=== PATIENT | male | born 1985 | race African-American/Black ===

== ENCOUNTER 2021-12-05 19:54 | Emergency (ER) | payer SELFPAY ==
[2021-12-05 21:53] LABS: Absolute Lymphocytes (CBC) 2.1 K/uL (0.7-4.9); Hematocrit 40.6 % (39.6-49.0); Lymphocytes % 29.4 % (15.3-44.8); MCV 86.3 fL (80-100); MPV 7.3 fL (7.6-11.3)
--- NOTE | 2021-12-05 22:02 | RAD REPORT ---
EXAM DESCRIPTION: RAD - Chest Single View - 12/05/2021 9:56 pm CLINICAL HISTORY: syncope Chest pain. COMPARISON: No comparisons FINDINGS: Portable technique limits examination quality. The lungs are grossly clear. The heart is normal in size. No displaced fractures. IMPRESSION: No acute intrathoracic process suspected.
[2021-12-05 22:10] LABS: Albumin 3.5 g/dL (3.4-5.0); Bilirubin Direct 0.2 mg/dL (0-0.2); Bilirubin Total 0.4 mg/dL (0.2-1.0); Potassium 3.7 mmol/L (3.5-5.1); Protein, Total 7.1 g/dL (6.4-8.2); Troponin High Sensitivity 6.9 pg/mL (<58.9)
[2021-12-05 22:16] LABS: Urine Blood Negative (Negative); Urine Glucose Negative (Negative); Urine Protein Negative (Negative); Urine Specific Gravity 1.025 (1.005-1.030)
[2021-12-05 22:20] LABS: Protime INR 1.09
[2021-12-05] MEDS ORDERED: NA CHLORIDE 0.9% 1,000 ML ONE ×2 (22:34→23:46)
[2021-12-05 22:59] LABS: Barbiturates NEGATIVE (NEGATIVE); Benzodiazepines NEGATIVE (NEGATIVE); Cocaine POSITIVE (NEGATIVE); METHAMPHETAM POSITIVE (NEGATIVE); Methadone NEGATIVE (NEGATIVE); Opiates NEGATIVE (NEGATIVE); Phencyclidine NEGATIVE (NEGATIVE); THC Cannibis NEGATIVE (NEGATIVE)
--- NOTE | 2021-12-05 22:59 | RAD REPORT ---
EXAM DESCRIPTION: CT - Head C Spine Cap Wo Con - 12/05/2021 10:38 pm CLINICAL HISTORY: Trauma, head and neck injury. Chest, abdomen and pelvis pain. syncope COMPARISON: No comparisons TECHNIQUE: CT head without contrast. CT cervical spine without contrast with coronal and sagittal reformatted images. CT chest, abdomen and pelvis without contrast with coronal and sagittal reformatted images of [facility]. All CT scans are performed using dose optimization technique as appropriate and may include automated exposure control or mA/KV adjustment according to patient size. FINDINGS: CT HEAD WITHOUT CONTRAST: No intracranial hemorrhage, hydrocephalus or extra-axial fluid collection. No areas of brain edema o r midline shift. The paranasal sinuses and mastoids are clear. The calvarium is intact. CT CERVICAL SPINE WITHOUT CONTRAST: No fracture or subluxation. The prevertebral soft tissues are normal in thickness. CT CHEST, ABDOMEN, PELVIS WITHOUT CONTRAST: NOTE: Lack of contrast is a significant limitation in the assessment of trauma related findings. Spec ifically, solid organ, vascular and bowel evaluation is significantly limited. The lungs are clear.No pneumothorax or pericardial/pleural fluid. No evidence of intra-abdominal visceral injury, free fluid or free air is seen within the above detai led limitations. No concerning pelvic findings. No fractures. IMPRESSION: Negative for acute traumatic findings within the above detailed limitations.
--- NOTE | 2021-12-05 23:00 | RAD REPORT ---
EXAM DESCRIPTION: CT - CTFB CLINICAL HISTORY: Facial trauma, blunt Trauma, facial pain and injury COMPARISON: No comparisons TECHNIQUE: Axial 2 mm thick images of the face were obtained with sagittal and coronal reconstructio n images. All CT scans are performed using dose optimization technique as appropriate and may include automated exposure control or mA/KV adjustment according to patient size. FINDINGS: No acute facial bone fracture is seen.The mandible is intact. The globes and orbital contents are grossly unremarkable.The paranasal sinuses and mastoids are clear . IMPRESSION: Negative for facial bone fracture.
[2021-12-05 23:13] LABS: Urine Mucus Slight /HPF (None Seen); Urine RBC <5 /HPF (None Seen)
[2021-12-05] MEDS ORDERED: LIDOCAINE 1% MPF 30 ML VIAL ONE (23:46)
[2021-12-05] MEDS ORDERED: TETANUS & DIPHTHERIA TOX,ADULT 0.5 ML VIAL ONE (23:46)
[2021-12-05] MEDS ORDERED: BUPIVACAINE 0.5% PF 10 ML VIAL ONE (23:46)
--- NOTE | 2021-12-06 03:48 | ER ---
Nurse's Notes [facility] Name: Nemesio Ontiveros Age: 36 yrs Sex: Male : 1985 Arrival Date: 12/05/2021 Time: 19:55 Bed 11 Private MD: Diagnosis: syncope;Laceration Presentation: 12/05 20:29 Chief complaint: Patient states: syncopal episode around 2pm, walking to gas station ld1 for a drink, fell and hit chin. Says he's been "passing out and feeling dizzy" since noon today. Coronavirus screen: Vaccine status: Patient reports being unvaccinated. Ebola Screen: No symptoms or risks identified at this time. Initial Sepsis Screen: Does the patient meet any 2 criteria? No. Patient's initial sepsis screen is negative. Does the patient have a suspected source of infection? No. Patient's initial sepsis screen is negative. Risk Assessment: Do you want to hurt yourself or someone else? Patient reports no desire to harm self or others. Onset of symptoms was December 05, 2021. 20:29 Method Of Arrival: Ambulatory ld1 20:29 Acuity: SHARYN 3 ld1 Triage Assessment: 20:31 General: Appears distressed, uncomfortable, Behavior is cooperative, appropriate for ld1 age, anxious. Pain: Denies pain. Historical: - Allergies: 20:31 Amoxicillin; ld1 20:31 Cefazolin; ld1 - PMHx: 20:31 Hypertension; ld1 - Immunization history:: Adult Immunizations up to date. - Social history:: Smoking status: Patient reports the use of cigarette tobacco products, denies chronic smoking, but will smoke occasionally. Screenin:30 Abuse screen: Denies threats or abuse. Denies injuries from another. Nutritional eh3 screening: No deficits noted. Tuberculosis screening: No symptoms or risk factors identified. Fall Risk Fall in past 12 months (25 points). No secondary diagnosis (0 pts). IV access (20 points). Ambulatory Aid- None/Bed Rest/Nurse Assist (0 pts). Gait- Normal/Bed Rest/Wheelchair (0 pts) Mental Status- Oriented to own ability (0 pts). Total Menard Fall Scale indicates High Risk Score (45 or more points). Fall prevention measures have been instituted. Side Rails Up X 2 Placed Close to Nursing Station Frequent Obs/Assessments Occuring Family Present and informed to notify staff if the need to leave the bedside As available patient and family educated on Fall Prevention Program and Strategies. Assessment: 21:30 General: Appears in no apparent distress. uncomfortable, Behavior is calm, cooperative, eh3 appropriate for age. Pain: Complains of pain in left mandible Pain does not radiate. Pain currently is 8 out of 10 on a pain scale. Quality of pain is described as sharp, Pain began 4 hours ago. Is continuous, Alleviated by nothing. Aggravated by repositioning. Neuro: Level of Consciousness is awake, alert, obeys commands, Oriented to person, place, time, situation. Cardiovascular: Capillary refill < 3 seconds Patient's skin is warm and dry. Respiratory: Airway is patent Respiratory effort is even, unlabored. GI: No signs and/or symptoms were reported involving the gastrointestinal system. : No signs and/or symptoms were reported regarding the genitourinary system. EENT: No signs and/or symptoms were reported regarding the EENT system. Derm: Wound noted left mandible Other: 10mm round laceration on left side of chin. Multiple scrapes and small lacerations on right arm and hand. Musculoskeletal: Circulation, motion, and sensation intact. Range of motion: intact in all extremities. 22:30 Reassessment: Patient and/or family updated on plan of care and expected duration. Pain eh3 level reassessed. Patient is alert, oriented x 3, equal unlabored respirations, skin warm/dry/pink. 23:30 Reassessment: Patient and/or family updated on plan of care and expected duration. Pain eh3 level reassessed. Patient is alert, oriented x 3, equal unlabored respirations, skin warm/dry/pink. 12/06 00:15 Reassessment: Took over care att. vc1 01:00 General: Behavior is drowsy, quiet. Pain: Denies pain. vc1 02:00 Reassessment: No changes from previously documented assessment. Patient and/or family vc1 updated on plan of care and expected duration. Pain level reassessed. 03:00 Reassessment: No changes from previously documented assessment. Patient and/or family vc1 updated on plan of care and expected duration. Pain level reassessed. 03:55 Reassessment: No changes from previously documented assessment. Patient and/or family vc1 updated on plan of care and expected duration. Pain level reassessed. Patient is alert, oriented x 3, equal unlabored respirations, skin warm/dry/pink. Vital Signs: 12/05 20:29 BP 121 / 82; Pulse 95; Resp 20; Temp 98.5(TE); Pulse Ox 100% on R/A; Weight 92.99 kg; ld1 Height 5 ft. 11 in. (180.34 cm); Pain 0/10; 22:00 BP 133 / 91 Supine; Pulse 87; Resp 18; Pulse Ox 100% on R/A; eh3 22:02 BP 139 / 95 Sitting; Pulse 95; Resp 18; Pulse Ox 100% on R/A; eh3 22:04 BP 123 / 89 Standing; Pulse 107; Resp 18; Pulse Ox 100% on R/A; eh3 23:00 BP 122 / 82; Pulse 82; Resp 18; Pulse Ox 100% on R/A; eh3 12/06 00:00 BP 120 / 81; Pulse 86; Resp 18; Pulse Ox 100% on R/A; eh3 01:33 BP 122 / 67; Pulse 90; Resp 21; Pulse Ox 100% on R/A; vc1 02:59 BP 124 / 83; Pulse 94; Resp 19; Pulse Ox 100% on R/A; vc1 12/05 20:29 Body Mass Index 28.59 (92.99 kg, 180.34 cm) ld1 NIH Stroke Scale Scores: 12/05 21:30 NIHSS Score: 0 3 ED Course: 19:55 Patient arrived in ED. bp1 20:31 Triage completed. ld1 20:31 Arm band placed on right wrist. ld1 20:41 Bronson Anders PA is PHCP. cp 20:41 Fernando Bolaños DO is Attending Physician. cp 21:18 Nadya Luo, RN is Primary Nurse. eh3 21:30 Patient has correct armband on for positive identification. Bed in low position. Call 3 light in reach. Side rails up X2. Adult w/ patient. Client placed on continuous cardiac and pulse oximetry monitoring. NIBP monitoring applied. Door closed. Noise minimized. Lights dimmed. 21:30 No provider procedures requiring assistance completed. eh3 21:43 Inserted saline lock: 20 gauge in right antecubital area, using aseptic technique. 3 Blood collected. 21:58 XRAY Chest (1 view) In Process Unspecified. EDMS 22:22 Urine Microscopic Only Sent. eh3 22:22 UDS Sent. eh3 22:37 Notified Nurse Practitioner and/or Physician Cow Tender of a critical lab result(s), bb DDimer of [address] BE notified. 22:40 CT Facial Bones W/O Con In Process Unspecified. EDMS 22:40 CT Traumagram (Head C Spine CAP wo con) In Process Unspecified. EDMS 12/06 02:59 CT Aorta for Dissection In Process Unspecified. EDMS 03:45 Terrell Harper, is Referral Physician. ms3 04:27 IV discontinued, intact, bleeding controlled, No redness/swelling at site. Pressure vc1 dressing applied. Administered Medications: 12/05 21:40 Drug: NS 0.9% 1000 ml Route: IV; Rate: 1 bolus; Site: right antecubital; eh3 23:45 Drug: Tetanus-Diphtheria Toxoid Adult 0.5 ml {[facility]: [place]. Exp: [facility] 07/29/2023. Lot #: [id number]. } Route: IM; Site: left deltoid; 12/06 01:00 Drug: Lidocaine-Epinephrine -1%: (1:100,000) 10 ml Volume: 20 ml; Route: Infiltration; vc1 01:00 Drug: Marcaine (bupivacaine) (0.5 %) 10 ml Volume: 10 ml; Route: Infiltration; vc1 01:20 Drug: NS 0.9% 1000 ml Route: IV; Rate: 1 bolus; Site: Other; vc1 Medication: 12/05 21:30 VIS not applicable for this client. 3 Outcome: 12/06 03:47 Discharge ordered by . ms3 04:27 Discharged to home via wheelchair, with significant other. vc1 04:27 Condition: good 04:27 Discharge instructions given to significant other, Instructed on discharge instructions, follow up and referral plans. wound care, Demonstrated understanding of instructions, follow-up care, wound care. 04:27 Patient left the ED. vc1 NIH Stroke Scale - NIH Stroke Score Date: 12/05/2021 Time: 21:30 Total Score = 0 1a. Level of Consciousness (LOC) - 0(Alert) 1b. Level of Consciousness (LOC) (Month \\T\\ Age) - 0(Both) 1c. LOC Commands (Open \\T\\ Closes Eyes/Stunt Performer) - 0(Both) 2. Best Gaze (Lateral Gaze Paresis) - 0(Normal) 3. Visual Field Loss - 0(No visual loss) 4. Facial Palsy - 0(Normal) 5a. Left Arm: Motor (10-second hold) - 0(No drift) 5b. Right Arm: Motor (10-second hold) - 0(No drift) 6a. Left Leg: Motor (5-second hold - always test supine) - 0(No drift) 6b. Right Leg: Motor (5-second hold - always test supine) - 0(No drift) 7. Limb Ataxia (finger/nose \\T\\ heel/reyes - test with eyes open) - 0(Absent) 8. Sensory Loss (pinprick arms/legs/face) - 0(Normal) 9. Best Language: Aphasia (description/naming/reading) - 0(No aphasia) 10. Dysarthria (speech clarity - read or repeat words) - 0(Normal) 11. Extinction and Inattention (visual/tactile/auditory/spatial/personal) - 0(No abnormality) Initials: eh3 Signatures: Dispatcher [employer] EDImelda Meyers, RN RN Bronson Zarate PA PA cp Sims, Marcus, DO ms3 Nelly Rodríguez Lauren, RN RN ld1 Ama Grijalva RN RN vc1 Nadya Luo, JACKELINE RN eh3
--- NOTE | 2021-12-06 03:48 | EDPHYS ---
Physician Documentation [facility] Name: Nemesio Ontiveros Age: 36 yrs Sex: Male : 1985 Arrival Date: 12/05/2021 Time: 19:55 Bed 11 Private MD: ED Physician Fernando Bolaños HPI: 12/05 21:20 This 36 yrs old Black Male presents to ER via Ambulatory with complaints of Fall cp Injury, Laceration To Chin, Head Injury With LOC-Adult. 21:20 The patient has experienced syncope, collapsed, lost consciousness. Onset: The cp symptoms/episode began/occurred today. Duration: The patient has had multiple episodes, that last an unknown period of time. 21:20 Context: occurred outdoors, occurred while the patient was standing, Just prior to the cp episode the patient experienced dizziness, lightheadedness, weakness. Associated injury: Head/face: left mandible, laceration. Current symptoms: general weakness. The patient has not experienced similar symptoms in the past. 21:20 Patient admits to smoking synthetic today. cp Historical: - Allergies: 20:31 Amoxicillin; ld1 20:31 Cefazolin; ld1 - PMHx: 20:31 Hypertension; ld1 - Immunization history:: Adult Immunizations up to date. - Social history:: Smoking status: Patient reports the use of cigarette tobacco products, denies chronic smoking, but will smoke occasionally. ROS: 21:25 Constitutional: Negative for body aches, chills, fever, poor PO intake. cp 21:25 Cardiovascular: Negative for chest pain, edema, palpitations. cp 21:25 Respiratory: Negative for cough, shortness of breath, wheezing. 21:25 Abdomen/GI: Negative for abdominal pain, vomiting, diarrhea, constipation, black/tarry stool, rectal bleeding. 21:25 : Negative for urinary symptoms. 21:25 Skin: Positive for laceration(s), of the left mandible. 21:25 Neuro: Positive for dizziness, headache, syncope, weakness, Negative for numbness, seizure activity. 21:25 All other systems are negative. Exam: 20:47 ECG was reviewed by the Attending Physician. cp 21:30 Constitutional: The patient appears in no acute distress, alert, awake, cp non-diaphoretic, non-toxic, well developed, well nourished. 21:30 Head/face: Noted is a laceration(s), that is deep, that is linear, of the left cp mandible, tenderness, that is moderate. 21:30 Eyes: Periorbital structures: appear normal, Pupils: equal, round, and reactive to light and accomodation, Extraocular movements: intact throughout, Conjunctiva: normal, no exudate, no injection, Sclera: no appreciated abnormality, Lids and lashes: appear normal, bilaterally. 21:30 ENT: External ear(s): are unremarkable, Ear canal(s): are normal, clear, TM's: dullness, bilaterally, Nose: is normal, Mouth: Lips: moist, Oral mucosa: pink and intact, moist, Posterior pharynx: Airway: no evidence of obstruction, patent, swelling, is not appreciated, erythema, is not appreciated. 21:30 Neck: C-spine: vertebral tenderness, that is mild, appreciated at C5 and C6, crepitus, is not appreciated, ROM/movement: pain, that is mild, with any movement, limited range of motion, is not appreciated, nuchal rigidity, is not appreciated. 21:30 Chest/axilla: Inspection: normal, Palpation: is normal, no crepitus, no tenderness. 21:30 Cardiovascular: Rate: normal, Rhythm: regular, Edema: is not appreciated, JVD: is not appreciated. 21:30 Respiratory: the patient does not display signs of respiratory distress, Respirations: normal, no use of accessory muscles, no retractions, labored breathing, is not present, Breath sounds: are clear throughout, no decreased breath sounds, no stridor, no wheezing. 21:30 Abdomen/GI: Inspection: abdomen appears normal, Bowel sounds: active, all quadrants, Palpation: abdomen is soft and non-tender, in all quadrants. 21:30 Back: CVA tenderness, is absent, spinal tenderness negative. Vital Signs: 20:29 BP 121 / 82; Pulse 95; Resp 20; Temp 98.5(TE); Pulse Ox 100% on R/A; Weight 92.99 kg; ld1 Height 5 ft. 11 in. (180.34 cm); Pain 0/10; 22:00 BP 133 / 91 Supine; Pulse 87; Resp 18; Pulse Ox 100% on R/A; eh3 22:02 BP 139 / 95 Sitting; Pulse 95; Resp 18; Pulse Ox 100% on R/A; eh3 22:04 BP 123 / 89 Standing; Pulse 107; Resp 18; Pulse Ox 100% on R/A; eh3 23:00 BP 122 / 82; Pulse 82; Resp 18; Pulse Ox 100% on R/A; eh3 12/06 00:00 BP 120 / 81; Pulse 86; Resp 18; Pulse Ox 100% on R/A; eh3 01:33 BP 122 / 67; Pulse 90; Resp 21; Pulse Ox 100% on R/A; vc1 02:59 BP 124 / 83; Pulse 94; Resp 19; Pulse Ox 100% on R/A; vc1 12/05 20:29 Body Mass Index 28.59 (92.99 kg, 180.34 cm) ld1 NIH Stroke Scale Scores: 12/05 21:30 NIHSS Score: 0 eh3 Laceration: 12/06 00:45 Wound Repair of 3.5cm ( 1.4in ) subcutaneous laceration to left mandible. Linear cp shaped.. Distal neuro/vascular/tendon intact. Anesthesia: Wound infiltrated with 10 mls of Lido/Marcaine. Wound prep: Moderate cleansing by me, Wound irrigation by me. Subcutaneous tissue closed with 4 5-0 Vicryl using interrupted sutures and sterile technique. Skin closed with 7 5-0 Prolene using simple sutures and sterile technique. Dressed with Bacitracin, 4x4's. Patient tolerated well. MDM: 12/05 20:46 Patient medically screened. cp 22:00 Differential Diagnosis: aortic aneurysm, cardiac arrhythmia, cerebrovascular accident, cp drug effect, GI bleed, seizure, vasovagal episode, kidney failure. 12/06 01:00 Test interpretation: by ED physician or midlevel provider: ECG, plain radiologic cp studies. 03:47 Data reviewed: vital signs, nurses notes, lab test result(s), radiologic studies, and ms3 as a result, I will discharge patient. Counseling: I had a detailed discussion with the patient and/or guardian regarding: the historical points, exam findings, and any diagnostic results supporting the discharge/admit diagnosis, lab results, radiology results, the need for outpatient follow up, to return to the emergency department if symptoms worsen or persist or if there are any questions or concerns that arise at home. Special discussion:. ED course: Discussed observation with patient and patient declines. Patient to follow-up with his primary care physician in 2 to 3 days. Patient understands agrees with plan. All questions were answered. Return precautions discussed include worsening symptoms, or any other concerns. On reevaluation patient is alert and oriented x4, no apparent distress, nontoxic.. 12/05 21:17 Order name: Basic Metabolic Panel; Complete Time: 22:13 cp 12/05 22:13 Interpretation: Normal except: GLUC 161; CRE 1.72; GFR 52; CA 8.3. cp 12/05 21:17 Order name: CBC with Diff; Complete Time: 22:11 cp 12/05 22:11 Interpretation: Normal except: MPV 7.3. cp 12/05 21:17 Order name: D-Dimer; Complete Time: 22:38 cp 12/05 23:15 Interpretation: D-DIMER 502; Reviewed. cp 12/05 21:17 Order name: LFT's; Complete Time: 22:13 cp 12/05 22:38 Interpretation: Normal except: GLOB 3.6; A/G 1.0. cp 12/05 21:17 Order name: Magnesium; Complete Time: 22:13 cp 12/05 21:17 Order name: PT-INR; Complete Time: 22:38 cp 12/05 21:17 Order name: Troponin HS; Complete Time: 22:13 cp 12/05 22:38 Interpretation: Reviewed. cp 12/05 21:17 Order name: XRAY Chest (1 view); Complete Time: 22:11 cp 12/05 21:17 Order name: UDS; Complete Time: 23:12 cp 12/05 23:12 Interpretation: Normal except: JUSTIN POSITIVE; METHAMPHETAMINE POSITIVE. cp 12/05 21:17 Order name: Urine Microscopic Only; Complete Time: 23:21 cp 12/05 21:17 Order name: CK; Complete Time: 22:13 cp 12/05 22:13 Interpretation: Abnormal: CPK 437. cp 12/05 21:17 Order name: CT Facial Bones W/O Con; Complete Time: 23:12 cp 12/05 23:14 Interpretation: Report reviewed. 12/05 22:16 Order name: Urine Dipstick-Ancillary; Complete Time: 22:38 EDMS 12/05 21:17 Order name: EKG; Complete Time: 21:19 cp 09/21 21:17 Order name: Cardiac monitoring; Complete Time: 22:35 cp 12/05 21:17 Order name: EKG - Nurse/Tech; Complete Time: 21:22 cp 12/05 21:17 Order name: IV Saline Lock; Complete Time: 21:43 cp 12/05 21:17 Order name: Labs collected and sent; Complete Time: 21:43 cp 12/05 21:17 Order name: O2 Per Protocol; Complete Time: 21:43 cp 12/05 21:17 Order name: O2 Sat Monitoring; Complete Time: 21:43 cp 12/05 21:17 Order name: Urine Dipstick-Ancillary (obtain specimen); Complete Time: 22:22 cp 12/05 22:15 Order name: CT Traumagram (Head C Spine CAP wo con); Complete Time: 23:12 cp 12/05 23:15 Interpretation: Report reviewed. cp 12/06 00:41 Order name: CT Aorta for Dissection cp 12/05 21:17 Order name: Orthostatics; Complete Time: 22:15 cp 12/05 23:20 Order name: Dressing - Wound; Complete Time: 03:01 cp 12/05 23:20 Order name: Gloves, Sterile; Complete Time: 03:01 cp 12/05 23:20 Order name: Setup Suture Tray; Complete Time: 03:01 cp EC/21 20:47 Rate is 87 beats/min. Rhythm is regular. DC interval is normal. QRS interval is normal. cp QT interval is normal. T waves are Inverted in leads aVL, aVR. Interpreted by me. Reviewed by me. Administered Medications: 21:40 Drug: NS 0.9% 1000 ml Route: IV; Rate: 1 bolus; Site: right antecubital; [facility] 23:45 Drug: Tetanus-Diphtheria Toxoid Adult 0.5 ml {Public Affairs Officer: [place]. Exp: eh3 07/29/2023. Lot #: [id number]. } Route: IM; Site: left deltoid; 12/06 01:00 Drug: Lidocaine-Epinephrine -1%: (1:100,000) 10 ml Volume: 20 ml; Route: Infiltration; vc1 01:00 Drug: Marcaine (bupivacaine) (0.5 %) 10 ml Volume: 10 ml; Route: Infiltration; vc1 01:20 Drug: NS 0.9% 1000 ml Route: IV; Rate: 1 bolus; Site: Other; vc1 Disposition: 09:19 Co-signature as Attending Physician, Fernando Bolaños DO. ms3 12/07 03:38 Chart complete. ms3 Disposition Summary: 12/06/21 03:47 Discharge Ordered Location: Home ms3 Condition: Stable ms3 Diagnosis - syncope ms3 - Laceration ms3 Followup: ms3 - With: Terrell Harper DO - When: 1 - 2 days - Reason: Recheck today's complaints Discharge Instructions: - Discharge Summary Sheet ms3 - Syncope ms3 Forms: - Medication Reconciliation Form ms3 - Thank You Letter ms3 - Antibiotic Education ms3 - Prescription Opioid Use ms3 NIH Stroke Scale - NIH Stroke Score Date: 12/05/2021 Time: 21:30 Total Score = 0 1a. Level of Consciousness (LOC) - 0(Alert) 1b. Level of Consciousness (LOC) (Month \T\ Age) - 0(Both) 1c. LOC Commands (Open \T\ Closes Eyes/Deflash And Wash Operator) - 0(Both) 2. Best Gaze (Lateral Gaze Paresis) - 0(Normal) 3. Visual Field Loss - 0(No visual loss) 4. Facial Palsy - 0(Normal) 5a. Left Arm: Motor (10-second hold) - 0(No drift) 5b. Right Arm: Motor (10-second hold) - 0(No drift) 6a. Left Leg: Motor (5-second hold - always test supine) - 0(No drift) 6b. Right Leg: Motor (5-second hold - always test supine) - 0(No drift) 7. Limb Ataxia (finger/nose \T\ heel/reyes - test with eyes open) - 0(Absent) 8. Sensory Loss (pinprick arms/legs/face) - 0(Normal) 9. Best Language: Aphasia (description/naming/reading) - 0(No aphasia) 10. Dysarthria (speech clarity - read or repeat words) - 0(Normal) 11. Extinction and Inattention (visual/tactile/auditory/spatial/personal) - 0(No abnormality) Initials: 3 Signatures: Dispatcher [employer] EDMS Bronson Anders PA PA cp Sims, Marcus, DO DO ms3 Soha Perdue RN RN ld1 Ama Grijalva RN RN vc1 Luo, Nadya, RN RN eh3 Corrections: (The following items were deleted from the chart) 12/05 21: 21:18 URINE DRUG SCREEN+UC.LAB.BRZ ordered. EDMS EDMS : 21:18 UA MICROSCOPIC+U.LAB.BRZ ordered. EDMS EDMS 22: 22:11 Normal except. cp cp 22:13 22:13 Normal except: GLUC 161; CRE 1.72; GFR 52. cp cp 22:25 21:19 Head C Spine MPR Wo Con+CT.RAD.BRZ ordered. EDMS EDMS : 21:28 Angio Aorta For Dissection+CT.RAD.BRZ ordered. EDMS EDMS
--- NOTE | 2021-12-06 13:37 | EKG ---
Test Date: 2021-12-05 Test Time: 20:40:51 Construction Quality Control Manager: KAYLYN MEASUREMENT RESULTS: Intervals: Rate: 87 WA: 140 QRSD: 94 QT: 364 QTc: 438 [place]: P: 79 WA: 140 QRS: 64 T: 72 INTERPRETIVE STATEMENTS: Normal sinus rhythm Normal ECG No previous ECG available for comparison Electronically Signed On 12-06-21 13:36:27 CDT by Javid Ortiz
--- NOTE | 2021-12-06 15:59 | RAD REPORT ---
EXAM DESCRIPTION: CTA Chest with Contrast CTA Abdomen/Pelvis with Contrast CLINICAL HISTORY: Syncope , suspected aortic dissection COMPARISON: None. TECHNIQUE: Chest, abdomen, pelvis CTA axial images acquired after IV contrast. Coronal and sagittal CTA MIPs and MPRs created. 3D volume rendered images created. Exam performed according to departmenta l dose-optimization program which includes automated exposure control, adjustment of mA and/or kV acc ording to patient size, and/or use of iterative reconstruction technique. FINDINGS: CTA Chest- Thoracic aorta unremarkable without evidence of dissection, aneurysm, or significant atherosclerotic plaque. Heart size normal. No pericardial effusion. Central tracheobronchial tree unremarkable. Few tiny right apical lung blebs. No lung mass, consolidation, contusion, hemothorax, or pneumothorax. No fracture. CTA Abdomen/Pelvis- No free air or hemoperitoneum. Liver, gallbladder, spleen, pancreas, adrenals, kidneys, and urinary bladder unremarkable. Nonopacified stomach, small bowel, appendix, and large bowel appear grossly unremarkable. Portions of large bowel difficult to accurately evaluate due to lack of distention. Abdominal aorta unremarkable without evidence of dissection, aneurysm, or significant atherosclerotic plaque. Moderate-sized left inferior pelvic rounded calcification likely representing phlebolith. Bones unremarkable without evidence of fracture. IMPRESSION: 1. CTA Chest- Unremarkable. 2. CTA Abdomen/Pelvis- Unremarkable. Electronically signed by: Sameer Mendoza MD 12/06/2021 3:33 AM CDT Due to temporary technical issues with the PACS/Fluency reporting system, reports are being signed by the in house radiologists without review as a courtesy to insure prompt reporting. The interpreting radiologist is fully responsible for the content of the report.
[2021-12-07 21:54] VITALS: TEMP 98.5; O2SAT 100
[2021-12-07 23:30] VITALS: BP 122/67
== END 2021-12-06 04:27 | disposition home or self-care (01) ==
LOC: ER 19:54
PROC: 0JQ10ZZ Repair Face Subcutaneous Tissue and Fascia, Open Approach (ICD-10-PCS; principal; 2021-12-06)
DX: R55 Syncope and collapse (principal); S01.81XA Laceration without foreign body of other part of head, initial encounter; Z23 Encounter for immunization
CPT/HCPCS: 36415; 70450; 70486; 71045; 71250; 71275; 72125; 74175; 76377; 80048; 80076; 80307; 81003; 81015; 82550; 83735; 84484; 85025; 85379; 85610; 90471; 90714; 93005; 99284; J7030; Q9967

== ENCOUNTER 2022-07-31 17:49 | Emergency (ER) | payer SELFPAY ==
[2022-07-31 19:30] LABS: Absolute Lymphocytes (CBC) 1.3 K/uL (0.7-4.9); Hematocrit 47.9 % (39.6-49.0); Lymphocytes % 12.2 % (15.3-44.8); MCV 86.2 fL (80-100); RBC Red Blood Cell Count 5.55 M/uL (4.33-5.43)
[2022-07-31 19:33] LABS: Protime INR 1.05
[2022-07-31] MEDS ORDERED: ASPIRIN 81 MG CHEWABLE TABLET ONE (19:37)
--- NOTE | 2022-07-31 19:37 | RAD REPORT ---
EXAM DESCRIPTION: RADChest Single View07/31/2022 7:23 pm CLINICAL HISTORY: CHEST PAIN COMPARISON: Chest Single View dated 12/05/2021 TECHNIQUE: Portable AP view of the chest. FINDINGS: The lungs are clear. No pneumothorax or effusion. The cardiomediastinal contours are unrem arkable. IMPRESSION: No acute cardiopulmonary process.
[2022-07-31 19:54] LABS: Albumin 3.2 g/dL (3.4-5.0); Bilirubin Direct 0.2 mg/dL (0-0.2); Bilirubin Indirect, Calculated 0.4 mg/dL (0.2-0.8); Bilirubin Total 0.6 mg/dL (0.2-1.0); Troponin High Sensitivity 5.7 pg/mL (<58.9)
[2022-07-31 19:59] LABS: Potassium 4.6 mEq/L (3.5-5.1)
[2022-07-31] MEDS ORDERED: ONDANSETRON 4 MG/2 ML VIAL ONE (20:00)
[2022-07-31] MEDS ORDERED: MORPHINE 4 MG/ML SYR ONE (20:00)
[2022-07-31 20:08] LABS: Barbiturates NEGATIVE (NEGATIVE); Benzodiazepines NEGATIVE (NEGATIVE); Cocaine NEGATIVE (NEGATIVE); METHAMPHETAM POSITIVE (NEGATIVE); Methadone NEGATIVE (NEGATIVE); Opiates NEGATIVE (NEGATIVE); Phencyclidine NEGATIVE (NEGATIVE); THC Cannibis NEGATIVE (NEGATIVE)
[2022-07-31] MEDS ORDERED: LORazepam 2 MG/ML VIAL ONE (20:37)
--- NOTE | 2022-07-31 21:13 | RAD REPORT ---
EXAM DESCRIPTION: CT - Chest For Pe Angio - 07/31/2022 8:36 pm CLINICAL HISTORY: CHEST PAIN COMPARISON: No comparisons TECHNIQUE: Thin axial CT images of the chest were obtained following administration of 100 mL Isovue 370 IV contrast. Multiplanar reconstructions, and maximum intensity projection reconstructions were generated and reviewed. Exam utilizes a protocol for optimal evaluation of pulmonary arterial tree. All CT scans are performed using dose optimization technique as appropriate and may include automated exposure control or mA/KV adjustment according to patient size. FINDINGS: Pulmonary arteries are normal. No emboli or other suspicious finding. No acute or signific ant aorta findings. No mass or infiltrate in the lung parenchyma. No pleural thickening or pleural effusion. No pneumotho rax. No abnormal mediastinal or hilar masses or lymphadenopathy seen. No chest wall mass or abnormal axill iary lymphadenopathy. IMPRESSION: No evidence of acute central pulmonary emboli. No other acute findings in the chest.
--- NOTE | 2022-07-31 23:29 | EDPHYS ---
Physician Documentation [facility] Name: Nemesio Ontiveros Age: 37 yrs Sex: Male : 1985 Arrival Date: 07/31/2022 Time: 17:49 Bed 16 Private MD: ED Physician Bronson Foreman HPI: 07/31 18:18 This 37 yrs old Black Male presents to ER via Ambulatory with complaints of Chest Pain. cp 18:18 The patient or guardian reports chest pain that is located primarily in the anterior cp chest wall, left. 18:18 The pain does not radiate. Associated signs and symptoms: Pertinent positives: cp shortness of breath, Pertinent negatives: abdominal pain, cough, diaphoresis, dizziness, lower extremity pain, lower extremity swelling, syncope, vomiting. The chest pain is described as a pressure. Duration: The patient or guardian reports a single episode, that is still ongoing, and worsening. Severity of pain: in the emergency department the pain is unchanged despite home interventions. 18:18 Patient reports chest pain times 4 days. Admits to use of methamphetamine with last use cp 2 weeks ago. Historical: - Allergies: 17:59 Cefazolin; nj1 17:59 Amoxicillin; nj1 - Home Meds: 17:59 None [Active]; nj1 - PMHx: 17:59 Hypertension; nj1 - Immunization history:: Client reports having NOT received the Covid vaccine. - Social history:: Smoking status: Patient denies any tobacco usage or history of. ROS: 18:20 Constitutional: Negative for body aches, chills, fever, poor PO intake. cp 18:20 Eyes: Negative for injury, pain, redness, and discharge. cp 18:20 ENT: Negative for drainage from ear(s), ear pain, sore throat, difficulty swallowing, difficulty handling secretions. 18:20 Cardiovascular: Positive for chest pain, Negative for edema, palpitations. 18:20 Respiratory: Negative for cough, shortness of breath, wheezing. 18:20 Abdomen/GI: Negative for abdominal pain, vomiting, diarrhea, constipation. cp 18:20 Back: Negative for pain at rest, pain with movement. 18:20 Skin: Negative for rash. 18:20 Neuro: Positive for weakness, Negative for altered mental status, dizziness, headache, numbness, syncope. 18:20 All other systems are negative. Exam: 18:10 ECG was reviewed by the Attending Physician. cp 18:25 Constitutional: The patient appears in no acute distress, alert, awake, cp non-diaphoretic, non-toxic, well developed, well nourished, uncomfortable. 18:25 Head/Face: Normocephalic, atraumatic. cp 18:25 Eyes: Periorbital structures: appear normal, Conjunctiva: normal, no exudate, no injection, Sclera: no appreciated abnormality, Lids and lashes: appear normal, bilaterally. 18:25 ENT: External ear(s): are unremarkable, Nose: is normal, Mouth: Lips: moist, Oral mucosa: pink and intact, moist, Posterior pharynx: is normal, airway is patent, no erythema, no exudate. 18:25 Neck: ROM/movement: is normal, is supple, without pain, no range of motions limitations, no meningismus, no nuchal rigidity. 18:25 Chest/axilla: Inspection: normal. 18:25 Cardiovascular: Rate: normal, Rhythm: regular, Heart sounds: murmur, not appreciated, Edema: is not appreciated, JVD: is not appreciated. 18:25 Respiratory: the patient does not display signs of respiratory distress, Respirations: normal, no use of accessory muscles, no retractions, labored breathing, is not present, Breath sounds: are clear throughout, no decreased breath sounds, no stridor, no wheezing. 18:25 Abdomen/GI: Inspection: abdomen appears normal, Palpation: abdomen is soft and non-tender, in all quadrants. 18:25 Back: pain, is absent, ROM is normal. 18:25 Neuro: Orientation: to person, place \T\ time. Mentation: is normal, Motor: moves all fours, strength is normal, Sensation: is normal. 19:12 ECG was reviewed by the Attending Physician. cp 22:08 ECG was reviewed by the Attending Physician. cp Vital Signs: 17:55 BP 134 / 105; Pulse 94; Resp 16; Temp 97.9(TE); Pulse Ox 100% ; Weight 90.72 kg; Height nj1 5 ft. 10 in. ; Pain 8/10; 19:41 BP 169 / 105; Pulse 94; Resp 14 S; Pulse Ox 99% on R/A; lg3 20:56 BP 135 / 96; Pulse 90; Resp 14 S; Pulse Ox 100% on R/A; lg3 22:35 BP 149 / 97; Pulse 75; Resp 15; Pulse Ox 99% on R/A; lg3 23:57 BP 133 / 91; Pulse 77; Resp 15; Pulse Ox 99% on R/A; lg3 17:55 Body Mass Index 28.70 (90.72 kg, 177.8 cm) nj1 17:55 Pain Scale: Adult nj1 MDM: 18:18 Patient medically screened. cp 19:00 Differential diagnosis: abnormal EKG, acute myocardial infarction, cholecystitis, cp Cholelithiasis costochondritis, esophagitis, gastritis, pancreatitis, pericarditis, pleurisy, pneumonia, pneumothorax, pulmonary embolus, stable angina, thoracic aortic disection, unstable angina. 23:28 Data reviewed: vital signs, nurses notes, lab test result(s), EKG, radiologic studies, cp CT scan, plain films. 23:28 Consideration of Admission/Observation Escalation of care including cp admission/observation considered. I considered the following discharge prescriptions or medication management in the emergency department Medications were administered in the Emergency Department. See MAR. Care significantly affected by the following chronic conditions: Hypertension. Counseling: I had a detailed discussion with the patient and/or guardian regarding: the historical points, exam findings, and any diagnostic results supporting the discharge/admit diagnosis, lab results, radiology results, to return to the emergency department if symptoms worsen or persist or if there are any questions or concerns that arise at home. Response to treatment: the patient's symptoms have markedly improved after treatment, and as a result, I will discharge patient. Special discussion: Based on the patient's history, exam, and Dx evaluation, there is no indication for emergent intervention or inpatient Tx. It is understood by the patient/guardian that if the Sx's persist or worsen they need to return immediately for re-evaluation. 07/31 18:18 Order name: Basic Metabolic Panel; Complete Time: 20:12 cp 07/31 20:12 Interpretation: Normal except: NA 132; CRE 1.31; GFR 72. cp 07/31 18:18 Order name: CBC with Diff; Complete Time: 19:50 cp 07/31 18:18 Order name: D-Dimer; Complete Time: 19:50 cp 07/31 18:18 Order name: LFT's; Complete Time: 20:12 cp 07/31 20:12 Interpretation: Normal except: ALB 3.2; GLOB 4.8; A/G 0.7. cp 07/31 18:18 Order name: Magnesium; Complete Time: 20:12 cp 07/31 18:18 Order name: NT PRO-BNP; Complete Time: 20:12 cp 07/31 18:18 Order name: PT-INR; Complete Time: 19:50 cp 07/31 18:18 Order name: Troponin HS; Complete Time: 20:12 cp 07/31 20:13 Interpretation: Troponin HS 5.7; Reviewed. cp 07/31 18:18 Order name: UDS; Complete Time: 20:12 cp 07/31 20:13 Interpretation: Normal except: METHAMPHETAMINE POSITIVE. cp 07/31 21:40 Order name: Troponin High Sensitivity: repeat at 2200; Complete Time: 23:05 cp 07/31 23:05 Interpretation: Reviewed. cp 07/31 18:18 Order name: XRAY Chest (1 view); Complete Time: 19:50 cp 07/31 19:51 Order name: CT Chest For PE Angio; Complete Time: 21:39 cp 07/31 18:18 Order name: EKG; Complete Time: 18:19 cp 07/31 21:40 Order name: EKG; Complete Time: 21:40 cp 07/31 18:18 Order name: Cardiac monitoring; Complete Time: 19:40 cp 07/31 18:18 Order name: EKG - Nurse/Tech; Complete Time: 19:18 cp 07/31 18:18 Order name: IV Saline Lock; Complete Time: 19:18 cp 07/31 18:18 Order name: Labs collected and sent; Complete Time: 19:18 cp 07/31 18:18 Order name: O2 Per Protocol; Complete Time: 19:18 cp 07/31 18:18 Order name: O2 Sat Monitoring; Complete Time: 19:18 cp 07/31 21:40 Order name: EKG - Nurse/Tech; Complete Time: 22:19 cp EC:10 Rate is 90 beats/min. Rhythm is regular. NE interval is normal. QRS interval is normal. cp QT interval is normal. T waves are Inverted in leads aVL, aVR. Interpreted by me. Reviewed by me. 19:12 Rate is 79 beats/min. Rhythm is regular. NE interval is normal. QRS interval is normal. cp QT interval is normal. T waves are Inverted in leads aVL, aVR. Interpreted by me. Reviewed by me. 22:08 Rate is 67 beats/min. Rhythm is regular. NE interval is normal. QRS interval is normal. cp QT interval is normal. T waves are Inverted in leads aVL, aVR. Interpreted by me. Reviewed by me. Administered Medications: 19:40 Drug: Aspirin PO Chewable Tablet 324 mg Route: PO; lg3 19:58 Follow up: Response: No adverse reaction lg3 19:58 Drug: morphine IVP or IV 4 mg Route: IVP; Infused Over: 4 mins; Site: left antecubital; lg3 19:58 Drug: Ondansetron IVP 4 mg Route: IVP; Site: left antecubital; lg3 20:31 Drug: Ativan IVP 1 mg Route: IVP; Site: left antecubital; lg3 Disposition Summary: 07/31/22 23:29 Discharge Ordered Location: Home cp Problem: new cp Symptoms: have improved cp Condition: Stable cp Diagnosis - Adverse effect of amphetamines, initial encounter cp - Chest pain, unspecified cp Followup: cp - With: Private Physician - When: 1 - 2 days - Reason: Recheck today's complaints Discharge Instructions: - Discharge Summary Sheet cp - Nonspecific Chest Pain, Adult cp - Methamphetamines Use Disorder cp - Aspirin and Your Heart cp Forms: - Medication Reconciliation Form cp - Thank You Letter cp - Antibiotic Education cp - Prescription Opioid Use cp Prescriptions: - Ibuprofen 800 mg Oral Tablet - take 1 tablet by ORAL route every 8 hours As needed take with food; 30 tablet; cp Refills: 0, Product Selection Permitted Signatures: Dispatcher [employer] EDBronson Perry PA PA cp Yudi Beaulieu, RN RN lg3 Parul Song RN RN nj1
--- NOTE | 2022-07-31 23:29 | ER ---
Nurse's Notes [facility] Name: Nemesio Ontiveros Age: 37 yrs Sex: Male : 1985 Arrival Date: 07/31/2022 Time: 17:49 Bed 16 Private MD: Diagnosis: Adverse effect of amphetamines, initial encounter;Chest pain, unspecified Presentation: 07/31 17:55 Chief complaint: Patient states: Chest pain for 4 days, not getting better, "feels like nj1 something is stuck in there". CO weakness/fatigue for the same amount of time. Denies fever, cough, diarrhea. "I cannot belch". Coronavirus screen: Vaccine status: Patient reports being unvaccinated. Ebola Screen: Patient denies travel to an Ebola-affected area in the 21 days before illness onset. Initial Sepsis Screen: Does the patient meet any 2 criteria? HR > 90 bpm. No. Patient's initial sepsis screen is negative. Does the patient have a suspected source of infection? No. Patient's initial sepsis screen is negative. Risk Assessment: Do you want to hurt yourself or someone else? Patient reports no desire to harm self or others. Onset of symptoms was July 27, 2022. 17:55 Method Of Arrival: Ambulatory [facility] 17:55 Acuity: SHARYN 3 nj1 Historical: - Allergies: 17:59 Cefazolin; nj1 17:59 Amoxicillin; nj1 - Home Meds: 17:59 None [Active]; nj1 - PMHx: 17:59 Hypertension; nj1 - Immunization history:: Client reports having NOT received the Covid vaccine. - Social history:: Smoking status: Patient denies any tobacco usage or history of. Screenin:41 [facility] ED Fall Risk Assessment (Adult) History of falling in the last 3 months, lg3 including since admission No falls in past 3 months (0 pts). Abuse screen: Denies threats or abuse. Denies injuries from another. Nutritional screening: No deficits noted. Tuberculosis screening: No symptoms or risk factors identified. Assessment: 19:41 General: Appears in no apparent distress. uncomfortable, Behavior is calm, cooperative. lg3 Pain: Complains of pain in chest Pain does not radiate. Pain began 4 days ago. Neuro: No deficits noted. Hamm Agitation-Sedation Scale (RASS): 0 - Alert and Calm Level of Consciousness is awake, alert, obeys commands, Oriented to person, place, time, situation. Cardiovascular: Reports chest pain, Capillary refill < 3 seconds Clubbing of nail beds is absent JVD is absent Patient's skin is warm and dry. Respiratory: No deficits noted. Airway is patent Trachea midline Respiratory effort is even, unlabored, Respiratory pattern is regular, symmetrical. GI: No deficits noted. No signs and/or symptoms were reported involving the gastrointestinal system. Abdomen is flat, non-distended. : No deficits noted. No signs and/or symptoms were reported regarding the genitourinary system. EENT: No deficits noted. No signs and/or symptoms were reported regarding the EENT system. Derm: No deficits noted. No signs and/or symptoms reported regarding the dermatologic system. Skin is intact, is healthy with good turgor, Skin is dry, Skin is normal, Skin temperature is warm. Musculoskeletal: No deficits noted. Circulation, motion, and sensation intact. Range of motion: intact in all extremities. 20:52 Reassessment: Patient appears in no apparent distress at this time. No changes from lg3 previously documented assessment. Patient and/or family updated on plan of care and expected duration. Pain level reassessed. Patient is alert, oriented x 3, equal unlabored respirations, skin warm/dry/pink. 22:41 Reassessment: Patient appears in no apparent distress at this time. No changes from lg3 previously documented assessment. Patient and/or family updated on plan of care and expected duration. Pain level reassessed. pt quietly resting with family at bedside . 23:57 Reassessment: Patient appears in no apparent distress at this time. No changes from lg3 previously documented assessment. Patient and/or family updated on plan of care and expected duration. Pain level reassessed. Patient is alert, oriented x 3, equal unlabored respirations, skin warm/dry/pink. Patient states feeling better. Patient states symptoms have improved. Vital Signs: 17:55 BP 134 / 105; Pulse 94; Resp 16; Temp 97.9(TE); Pulse Ox 100% ; Weight 90.72 kg; Height nj1 5 ft. 10 in. ; Pain 8/10; 19:41 BP 169 / 105; Pulse 94; Resp 14 S; Pulse Ox 99% on R/A; lg3 20:56 BP 135 / 96; Pulse 90; Resp 14 S; Pulse Ox 100% on R/A; lg3 22:35 BP 149 / 97; Pulse 75; Resp 15; Pulse Ox 99% on R/A; lg3 23:57 BP 133 / 91; Pulse 77; Resp 15; Pulse Ox 99% on R/A; lg3 17:55 Body Mass Index 28.70 (90.72 kg, 177.8 cm) id1 17:55 Pain Scale: Adult [facility] ED Course: 17:51 Patient arrived in ED. mr 17:59 Triage completed. id1 18:00 Bronson Anders PA is PHCP. cp 18:00 Bronson Foreman MD is Attending Physician. cp 18:00 Arm band placed on right wrist. id1 18:08 EKG completed in triage. Results shown to MD. id1 18:48 Genaro Mckeon, RN is Primary Nurse. bp 19:14 Inserted saline lock: 20 gauge in left antecubital area, using aseptic technique. Blood rv1 collected. 19:18 Basic Metabolic Panel Sent. lg3 19:19 CBC with Diff Sent. lg3 19:19 D-Dimer Sent. lg3 19:19 LFT's Sent. lg3 19:19 Magnesium Sent. lg3 19:19 NT PRO-BNP Sent. lg3 19:19 PT-INR Sent. lg3 19:19 Troponin HS Sent. lg3 19:25 XRAY Chest (1 view) In Process Unspecified. EDMS 19:41 Patient has correct armband on for positive identification. Placed in gown. Bed in low lg3 position. Call light in reach. Side rails up X 1. Client placed on continuous cardiac and pulse oximetry monitoring. NIBP monitoring applied. cafeteria monitor on. Door closed. Noise minimized. Warm blanket given. Family accompanied patient. 19:41 Patient maintains SpO2 saturation greater than 95% on room air. lg3 19:55 UDS Sent. lg3 20:37 CT Chest For PE Angio In Process Unspecified. EDMS 22:19 Troponin High Sensitivity: repeat at 2200 Sent. lg3 23:57 No provider procedures requiring assistance completed. IV discontinued, intact, lg3 bleeding controlled, No redness/swelling at site. Pressure dressing applied. Administered Medications: 19:40 Drug: Aspirin PO Chewable Tablet 324 mg Route: PO; lg3 19:58 Follow up: Response: No adverse reaction lg3 19:58 Drug: morphine IVP or IV 4 mg Route: IVP; Infused Over: 4 mins; Site: left antecubital; lg3 19:58 Drug: Ondansetron IVP 4 mg Route: IVP; Site: left antecubital; lg3 20:31 Drug: Ativan IVP 1 mg Route: IVP; Site: left antecubital; lg3 Medication: 23:57 VIS not applicable for this client. lg3 Outcome: 23:29 Discharge ordered by MD. jeffery 23:57 Discharged to home ambulatory, with family. lg3 23:57 Condition: stable 23:57 Discharge instructions given to patient, Instructed on discharge instructions, follow up and referral plans. medication usage, Demonstrated understanding of instructions, follow-up care, medications, Prescriptions given X 1. 08/01 00:02 Patient left the ED. lg3 Signatures: Dispatcher [employer] EDWV Evangelina Whitten Bronson Anders PA PA cp Peltier, Brian, RN RN Yudi Torres RN RN lg3 Nisa Thusrton rv1 Parul Song RN RN nj1 Corrections: (The following items were deleted from the chart) 07/31 18:08 17:55 Pulse 94bpm; Resp 16bpm; Pulse Ox 100%; Temp 97.9F Temporal; 90.72 kg; Height 5 nj1 ft. 10 in.; BMI: 28.7; Pain 8/10, Adult; nj1
[2022-08-01 00:33] VITALS: TEMP 97.9
[2022-08-01 00:42] VITALS: O2SAT 99
[2022-08-01 00:43] VITALS: BP 133/91
--- NOTE | 2022-08-01 05:37 | EKG ---
Test Date: 2022-07-31 Test Time: 22:03:19 Decorating Machine Operator: EPI MEASUREMENT RESULTS: Intervals: Rate: 67 [place]: 134 QRSD: 88 QT: 410 QTc: 433 [place]: P: 57 MN: 134 QRS: 71 T: 78 INTERPRETIVE STATEMENTS: Normal sinus rhythm Minimal voltage criteria for LVH, may be normal variant Early repolarization Borderline ECG Compared to ECG 12/05/2021 20:40:51 Left ventricular hypertrophy now present Early repolarization now present Electronically Signed On 08-01-22 05:36:24 CDT by Alvin Salgado
--- NOTE | 2022-08-01 11:22 | EKG ---
Test Date: 2022-07-31 Test Time: 18:05:28 Financial Services Education Consultant: ANDREA MEASUREMENT RESULTS: Intervals: Rate: 90 [place]: 130 QRSD: 100 QT: 372 QTc: 455 Home: P: 83 [place]: 130 QRS: 73 T: 82 INTERPRETIVE STATEMENTS: Normal sinus rhythm Normal ECG Compared to ECG 12/05/2021 20:40:51 No significant changes Electronically Signed On 08-01-22 11:20:11 CDT by Alvin Salgado
--- NOTE | 2022-08-01 11:22 | EKG ---
Test Date: 2022-07-31 Test Time: 19:08:43 Machining Engineer: RV MEASUREMENT RESULTS: Intervals: Rate: 79 [place]: 134 QRSD: 100 QT: 396 QTc: 454 [place]: P: 80 [place]: 134 QRS: 70 T: 81 INTERPRETIVE STATEMENTS: Normal sinus rhythm Normal ECG Compared to ECG 07/31/2022 18:05:28 No significant changes Electronically Signed On 08-01-22 11:20:08 CDT by Alvin Salgado
== END 2022-08-01 00:02 | disposition home or self-care (01) ==
LOC: ER 17:49
DX: R07.89 Other chest pain (principal); T43.625A Adverse effect of amphetamines, initial encounter
CPT/HCPCS: 36415; 71045; 71275; 80048; 80076; 80307; 83735; 83880; 84484; 85025; 85379; 85610; 93005; 96374; 96375; 99285; J2405; Q9967